=== PATIENT | male | born 1950 | race Caucasian/White ===

== ENCOUNTER 2025-02-19 08:12 | Emergency (ER) | payer MEDICARE, SELFPAY ==
[2025-02-19 08:17] VITALS: BP 165/88; PULSE 71; RESP 16; TEMP 36.7; O2SAT 96
--- OUTSIDE RECORDS SUMMARY | 2025-02-19 10:31 | XMS_ITS | Clinical Summary ---
Author Organization [facility] Address [address] [place] [address] Care Team Providers Care Library Associate Name Role Phone Boby Rand DO Primary Care Provider + Allergies Active Allergy Reactions Criticality Noted Date Comments Codeine Nausea And Vomiting 01/15/2022 Latex Hives 01/15/2022 Penicillins Rash Low 01/15/2022 Medications atorvaSTATin (LIPITOR) 40 mg tablet Take 40 mg by mouth every 2 (two) days Active atorvaSTATin (LIPITOR) 80 MG tablet Take 80 mg by mouth every 2 (two) days Active valsartan (DIOVAN) 80 mg tablet Take 80 mg by mouth nightly Active docusate sodium (COLACE) 100 mg capsule Take 100 mg by mouth 2 (two) times a day Active pantoprazole (PROTONIX) 40 mg tablet Take 40 mg by mouth as needed Active metoclopramide (REGLAN) 5 mg tabletIndicatio ns:Gastroesopha geal Reflux Disease Take 5 mg by mouth 4 (four) times a day PRN before or after meals Active guaiFENesin (MUCINEX) 600 MG 12 hr tablet Take 1,200 mg by mouth every 1 (one) day as needed Active albuterol HFA (PROAIR,PROVENT IL,VENTOLIN) 108 (90 Base) MCG/ACT inhaler Inhale 2 puffs every 6 (six) hours as needed for shortness of breath or wheezing 8.5 g Active HYDROcodone-wily taminophen (NORCO 5-325) 5-325 MG per tablet Take 1 tablet by mouth every 4 (four) hours as needed for up to 10 doses 10 tablet 2 Active Fluticasone-Ume clidin-Vilant (TRELEGY ELLIPTA INH) Inhale 1 puff Once a day Active aspirin 81 mg EC tablet Take 81 mg by mouth every 1 (one) day Active DUPIXENT Solution Prefilled Syringe injection Inject 2 mL under the skin every 14 (fourteen) days Active Miscellaneous Medication Inject under the skin every 4 (four) weeks Allergy injection monthly Active Active Problems Problem Noted Date Diagnosed Date S/P coronary artery stent placement 08/09/2022 Assessment & Plan (01/24/2025 1:29 PM CDT): Total of 4 coronary stents involving circumflex, LAD, ramus artery, distal right. Stress test 02/28/2024 showed no ischemia. Ejection fraction 60 to 65% Assessment & Plan (06/14/2024 10:12 PM CDT): Total of 4 coronary stents involving circumflex, LAD, ramus artery, distal right. Stress test 02/28/2024 showed no ischemia. Ejection fraction 60 to 65% Assessment & Plan (04/22/2023 5:08 PM SUPPORT SPECIALIST): Total of 4 coronary stents involving circumflex, LAD, ramus artery, distal right. Assessment & Plan (08/09/2022 12:03 PM CDT): Total of 4 coronary stents, recent stress tests equivocal for possible ischemia. Eczema 08/09/2022 Assessment & Plan (01/24/2025 1:27 PM CDT): Improved with Dupixent, also benefit for his asthma. Assessment & Plan (06/14/2024 10:13 PM CDT): Improved with Dupixent, also benefit for his asthma. Assessment & Plan (08/09/2022 12:04 PM CDT): Controlled with Dupixent Hiatal hernia with gastroesophageal reflux 08/09 Assessment & Plan (06/14/2024 10:11 PM CDT): Large hiatal hernia, excellent dietary habits and control, on medications routinely. Assessment & Plan (11/11/2023 8:57 PM CDT): Reasonable control, hiatal hernia obviously still present. Assessment & Plan (04/22/2023 5:07 PM SUPPORT SPECIALIST): Large hiatal hernia, chronic reflux symptoms although reasonably controlled at this time. Assessment & Plan (08/09/2022 12:04 PM CDT): Large hiatal hernia, reflux symptoms reasonably well controlled Severe persistent asthma 08/09/2022 Assessment & Plan (01/24/2025 1:28 PM CDT): Generally has more difficulties fall and early winter months, thus far stable in 2024. Assessment & Plan (06/14/2024 10:12 PM CDT): Most recent exacerbation was from January 22, 2024, lasting until [place]. He finally took steroids and azithromycin with improvement. He did not require hospitalization. Assessment & Plan (11/11/2023 8:58 PM CDT): Now on Dupixent to help control eczema, some benefit for asthma control as well Assessment & Plan (04/22/2023 5:07 PM SUPPORT SPECIALIST): Severe problems since childhood Assessment & Plan (08/09/2022 12:06 PM CDT): Asthma since childhood, multiple exacerbations over the years, currently reasonably well controlled with combination of Dupixent and Trelegy. Abnormal chest CT 08/09/2022 Assessment & Plan (06/14/2024 10:13 PM CDT): No new changes Assessment & Plan (04/22/2023 5:06 PM SUPPORT SPECIALIST): Waxing and waning infiltrates, currently no worse. Assessment & Plan (08/09/2022 12:08 PM CDT): Waxing and waning infiltrates, COVID-19, MRSA cultured from sputum, Aspergillus cultured from sputum. Questions remain about chronicity, and diagnosis of bronchiectasis has previously been question, but obviously cannot be determined in the face of an acute ongoing infection. MRSA (methicillin resistant staphylococcus aureus) pneumonia 01/20/2022 Severe sepsis 01/17/2022 Steroid-induced hyperglycemia 01/17/2022 Hyperlipidemia 01/17/2022 Essential hypertension 01/17/2022 Transaminitis 01/17/2022 Hyponatremia 01/17/2022 Metabolic acidosis 01/17/2022 Overweight with body mass in dex (BMI) of 27 to 27.9 in adult 01/17/2022 Secondary hypercoagulable state 01/17/2022 Pneumonia due to COVID-19 virus 01/15/2022 Resolved Problems Problem Noted Date Diagnosed Date Resolved Date Gram-negative pneumonia 01/17/202212/26 COPD exacerbation 01/17/2022 08/09/2022 Encounters Date Type Department Care Team Description 02/05/2025 2:30 PM SUPPORT SPECIALIST Immunization [facility] [address] [place] [address] Need for influenza vaccination (Primary Dx) 01/23/2025 2:00 PM CDT Office Visit [facility] [id number] [address] [facility], [facility] [address] [place] [address] Lilliana Lainez MD Schelbar, Emil Joe, MD Eczema, unspecified type (Primary Dx); Severe persistent asthma, unspecified whether complicated ([facility], [facility]); S/P coronary artery stent placement from Last 3 Months Immunizations Immunization Administration Dates Next Due Influenza, Adjuvanted, Trivalent, Preservative F ree 02/05/2025 Family History Medical History Relation Comments Hypertension Mother Relation Status Comments Mother Social History Tobacco Use Types Packs/Day Years Used Date Smoking Tobacco: Never Smokeless Tobacco: Never Alcohol Use Standard Drinks/Week Comments Not Currently 0 (1 standard drink = 0.6 oz pur e alcohol) Sex and Gender Information Value Date Recorded Sex Assigned at Not on file Legal Sex Male 4:17 AM CDT Gender Identity Not on file Sexual Orientation Not on file Last Filed Vital Signs Vital Sign Reading Time Taken Comments Blood Pressure 170/74 01/23/2025 2:45 PM CDT Pulse 58 01/23/2025 2:02 PM CDT Temperature 36.4 C (97.5 F) 01/23/2025 2:02 PM CDT Respiratory Rate 18 01/23/2025 2:02 PM CDT Oxygen Saturation 98% 01/23/2025 2:02 PM CDT RA@REST Inhaled Oxygen Concentration - - Weight 73.7 kg (162 lb 6.4 oz) 01/23/2025 2:02 P M CDT Height 165.1 cm (5' 5) 01/23/2025 2:02 PM CDT Body Mass Index 27.02 01/23/2025 2:02 PM CDT Plan of Treatment Upcoming Encounters Date Type Department Care Team (Late st Contact Info) Description 08/05/2025 1:20 PM CDT Office Visit [facility] [id number] [address], [facility] [address] [place] [address] [place] [address] [place] [address] Kahlil Haley MD [address] [facility] [address] [place] [address] Health Maintenance Due Date Last Done Comments Lipid Panel 1950 Medicare Annual Wellness (AWV) 1950 Adult Depression Screening 1970 Hepatitis C Screening 1970 DTaP/Tdap/Td Vaccines (1 - Tdap) 10/11/1971 Pneumococcal Vaccine: 50+ Years (1 of 2 - PCV) 10/11/1971 Zoster Vaccine (1 of 2) 10/11/1971 CT Colonography 1997 Colonoscopy 1997 FIT 1997 FOBT 1997 Sigmoidoscopy 1997 Prostate Cancer Screening 2002 Respiratory Syncytial Virus (RSV) or 50+ Years (1 - Risk 50-74 years 1-dose series) 2002 Fall Screening 2016 Advance Care Planning 2017 Creatinine Level 08/09/2023 08/08/2022, , 01/22/2022, Additional history exists Potassium Level 08/09/2023 08/08/2022, 12/27, 01/22/2022, Additional history exists COVID-19 Vaccine ( season) 2024 02/10/2021, 04/20/2020, 03/23/2020 Cologuard (FIT-DNA) 01/18/2026 01/18/2023 Colorectal Cancer Screening 01/18/2026 Influenza Vaccine Completed 02/05/2025, , 01/09/2023, Additional history exists HIB Vaccines Aged Out No longer eligi ble based on patient's age to complete this topic HPV Vaccines (No Doses Required) Completed Hepatitis A Vaccines Aged Out No long er eligible based on patient's age to complete this topic Hepatitis B Vaccines Aged Out No long er eligible based on patient's age to complete this topic IPV Vaccines Aged Out No longer eligi ble based on patient's age to complete this topic Meningococcal B Vaccine Aged Out No l onger eligible based on patient's age to complete this topic Meningococcal Vaccine Aged Out No [place] eligible based on patient's age to complete this topic Rotavirus Vaccines Aged Out No longer eligible based on patient's age to complete this topic Procedures Procedure Name Priority Date/Time Associated Diagnosis Comments CMP STAT 08/08/2022 12:44 AM CDT from Last 3 Months or Most Recently Relevant to Health Maintenance Results * (ABNORMAL) CMP (08/08/2022 12:44 AM CDT) Gluc 156(H) 70 - 110 mg/dL 08/08/2022 1:07 AM CDT [facility] BUN 17 5 - 25 mg/dL 08/08/2022 1:07 AM CDT [facility] Creat 1.00 0.72 - 1.25 mg/dL 08/08/2022 1:07 AM CDT [facility] CO2 19(L) 21 - 32 mmol/L 08/08/2022 1:07 AM CDT [facility] Cl 104 96 - 112 mmol/L 08/08/2022 1:07 AM T [facility] Na 136 135 - 146 mmol/L 08/08/2022 1:07 AM T [facility] K 4.1 3.5 - 5.0 mmol/L 08/08/2022 1:07 AM T [facility] Ca 9.6 8.5 - 10.7 mg/dL 08/08/2022 1:07 AM T [facility] TP 6.9 6.2 - 8.2 g/dL 08/08/2022 1:07 AM T [facility] Alb 3.9 3.4 - 4.7 g/dL 08/08/2022 1:07 AM [facility] T Bili 0.6 0.1 - 1.2 mg/dL 08/08/2022 1:07 AM [facility] Alk Phos 94 39 - 139 U/L 08/08/2022 1:07 AM [facility] AST (SGOT) 18 8 - 42 U/L 08/08/2022 1:07 AM [facility] ALT (SGPT) 16 7 - 40 U/L 08/08/2022 1:07 AM [facility] Anion Gap 13 5-17 mmol/L mmol/L 08/08/2022 1:07 AM [facility] eGFRcr 81 >=60 08/08/2022 1:07 AM [facility] Blood Venipuncture / Unknown 08/08/2022 12:44 AM CDT 08/08/2022 12:44 AM CDT Boby PLASCENCIA [facility] BLOOD ORDERABLES Final Result [facility] [address] [facility] 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
--- OUTSIDE RECORDS SUMMARY | 2025-02-19 10:31 | XMS_ITS | Clinical Summary ---
Author Organization [facility] Address [address] [place] [address] Phone Care Team Providers Care Director Of Coding Name Role Phone Boby Rand DO Primary Care Provider [phone] Allergies Active Allergy Reactions Criticality Noted Date Comments Amoxicillin-Pot Clavulanate Nausea And Vomiting High 07/06/2017 Latex Swelling,Rash High 07/06/2017 Penicillins Unknown 07/06/2017 Ticagrelor Shortness of breath High 01/28/2019 Medications aspirin 81 mg tablet, delayed release Take 1 tablet (81 mg total) by mouth 1 (one) time each day. Active nitroglycerin (NITROSTAT) 0.[address] 1 tablet (0.4 mg total) under the tongue every 5 (five) minutes if needed for chest pain. Active levalbuterol (XOPENEX HFA) 45 mcg/actuation inhaler Inhale 1-2 puffs if needed for wheezing. Active azelastine 205.5 mcg (0.15 %) spray,non-aeros ol Administer 205.5 mcg into affected nostril(s) if needed. Active fluticasone (FLONASE) 50 mcg/actuation nasal spray Administer 1 spray into each nostril if needed for rhinitis. Active pantoprazole (PROTONIX) 40 mg EC tablet Take 1 tablet (40 mg total) by mouth 1 (one) time each day. Active metoclopramide (REGLAN) 5 mg tablet Take 1 tablet (5 mg total) by mouth if needed. Active fluticasone-hermilo meterol (ADVAIR HFA) 45-21 mcg/actuation inhaler Inhale 2 puffs 2 (two) times per day. Rinse mouth with water after use . Do not swallow. 12 g 8 Active dupilumab (DUPIXENT) 300 mg/2 mL syringe Dupixent 300 mg/2 mL subcutaneous syringe Active albuterol HFA (Ventolin HFA) 90 mcg/actuation inhaler ProAir HFA 90 mcg/actuation aerosol inhaler Active atorvastatin (LIPITOR) 80 mg tablet Take 1 tablet (80 mg total) by mouth every other day. TAKE 1 TABLET EVERY OTHER DAY ALTERNATING WITH 40 MG TABLET Strength: 80 mg 45 tablet 3 5 Active atorvastatin (LIPITOR) 40 mg tablet Take 1 tablet (40 mg total) by mouth every other day. TAKE 1 TABLET EVERY OTHER DAY ALTERNATING WITH 80 MG TABLET Strength: 40 mg 45 tablet 3 5 Active valsartan (DIOVAN) 80 mg tablet Take 1 tablet (80 mg total) by mouth 1 (one) time each day. 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 BMI 27.0-27.9,adult 07/06/2017 Mixed hyperlipidemia 07/06/2017 Hypertensive heart disease without heart failure 07/06/2017 Palpitations 07/06/2017 Dizziness and giddiness 07/06/2017 Shortness of breath 07/06/2017 Atherosclerosis of coronary artery of [place] heart without angina pectoris 02/24/2015 Chest pain 12/25/2014 Immunizations Immunization Administration Dates Next Due Influenza, Unspecified 12/25/2017,01/09/2016 Pneumococcal Conjugate 13-Valent 03/28/2017 Pneumococcal Polysaccharide 10/26/2015 Family History Medical History Relation Comments Heart disease Mother Relation Status Comments Mother Social History Tobacco Use Types Packs/Day Years Used Date Smoking Tobacco: Never Passive Smoke Exposure: Yes Smokeless Tobacco: Never Tobacco Cessation:Counseling Given: No Alcohol Use Standard Drinks/Week Comments Yes 0 (1 standard drink = 0.6 oz pur e alcohol) occassionally drinks red wine Sex and Gender Information Value Date Recorded Sex Assigned at Not on file Legal Sex Male 1:30 PM CDT Gender Identity Male 09/15/2020 1:55 PM CDT Sexual Orientation Not on file Last Filed Vital Signs Vital Sign Reading Time Taken Comments Blood Pressure 124/66 03/06/2024 8:52 AM 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 Pulse 75 03/06/2024 8:52 AM 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 Temperature - - Respiratory Rate 16 03/06/2024 8:52 AM 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 Oxygen Saturation - - Inhaled Oxygen Concentration - - Weight 71.4 kg (157 lb 6.4 oz) 03/06/2024 8:52 A M 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 Height 165.1 cm (5' 5) 03/06/2024 8:52 AM 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 Body Mass Index 26.19 03/06/2024 8:52 AM 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 Plan of Treatment Upcoming Encounters Date Type Department Care Team (Late st Contact Info) Description 01/14/2026 1:00 PM CDT Office Visit [facility] [address] [place] [address] Laureano Newberry MD [address] [place] [address] Health Maintenance Due Date Last Done Comments CT Colonography 1950 Colonoscopy 1950 Medicare Wellness 1950 MMR Vaccines (1 of 1 - Standard series) 1953 Varicella Vaccines (1 of 2 - 13+ 2-dose series) 1965 Hepatitis C Screening 1970 DTaP,Tdap,and Td Vaccines (1 - Tdap) 10/11/1971 FOBT/FIT 1997 Sigmoidoscopy 1997 RSV Vaccine (1 - Risk 50-74 years 1-dose series) 2002 Zoster Vaccines (1 of 2) 2002 Depression Screening 03/27/2024 Fall Risk Screening 03/27/2024 Influenza Vaccine (#1) 2024 3, 01/08/2022, 01/02/2020, Additional history exists COVID-19 Vaccine ( season) 2024 02/10/2021, 04/20/2020, 03/23/2020 Cologuard 01/18/2026 01/18/2023 Colorectal Cancer Screening 01/18/2026 Pneumococcal 50+ Yr Completed 12/12/2018, 03/28/2017, 02/24/2016, Additional history exists Pneumococcal Discontinued 12/12/2018, 04/2017, 02/24/2016, Additional history exists HIB Vaccines Aged Out No longer eligi ble based on patient's age to complete this topic HPV Vaccines Aged Out No longer eligi ble based on patient's age to complete this topic Hepatitis A Vaccines Aged Out No long [...] on patient's age to complete this topic RSV Antibodies Aged Out No longer kin gible based on patient's age to complete this topic Insurance MEDICARE PART A AND B [employer] Care Teams Director Of Coding Relationship Specialty Start Date End Date Boby Rand DO PCP - General Student 11/22/21
--- NOTE | 2025-02-19 11:26 | ED_ITS ---
HPI - General Adult General Chief complaint: Urogenital-Male Stated complaint: bleeding from scrotum Time Seen by Provider: 02/19/25 09:15 History of Present Illness HPI narrative: 34-year-old male presenting with concerns for bleeding from his scrotum. Patient reports he got out of the shower this morning and and had blood running down his leg. He EMS was called to his hotel and they gave him a gauze to put pressure. Denies urinary concerns, abdominal pain, fevers/chills, or concerns for STD. He does not take blood thinners. Related Data Allergies Allergy/AdvReac Type Severity Reaction Status Date / Time latex Allergy Intermediate Hives Verified 02/19/25 08:21 Penicillins Allergy Intermediate Rash Verified 02/19/25 08:21 Review of Systems Review of Systems: All systems reviewed & are unremarkable except as noted in HPI and below Exam Narrative: GENERAL: Well-appearing, well-nourished, and in no acute distress. HEAD: Normocephalic, atraumatic. EYES: PERRLA and EOMI. ENT: Nares clear, no rhinorrhea or epistaxis. Mucous membranes moist. Oropharynx without tonsillar hypertrophy exudate or other lesions. Bilateral TMs pearly dasilva non-bulging NECK: Supple. No adenopathy or masses. No carotid bruits or JVD CHEST: Clear to auscultation. No respiratory distress. No wheezes rales or rhonchi HEART: Regular rate and rhythm. No murmur heard. Normal peripheral pulses. ABDOMEN: Soft, nontender, nondistended, normal active bowel sounds. EXTREMITIES: Normal range of motion. No edema. SCROTUM: Small pinpoint lesion, no erythema, swelling, warmth, induration, fluctuance, or lymphadenopathy SKIN: Warm, dry, no rash. NEURO: No focal deficits. Alert and oriented x3. PSYCH: Normal mood and affect Course Vital Signs Vital signs: Vital Signs Temperature 98.1 F 02/19/25 08:17 Pulse Rate 71 02/19/25 08:17 Respiratory Rate 16 02/19/25 08:17 Blood Pressure 165/88 H 02/19/25 08:17 Pulse Oximetry 96 02/19/25 08:17 Oxygen Delivery Room Air 02/19/25 08:17 Temperature 98.1 F 02/19/25 08:17 Pulse Rate 71 02/19/25 08:17 Respiratory Rate 16 02/19/25 08:17 Blood Pressure 165/88 H 02/19/25 08:17 Pulse Oximetry 96 02/19/25 08:17 Oxygen Delivery Room Air 02/19/25 08:17 Medical Decision Making MDM Narrative Medical decision making narrative: 34-year-old male presenting with concerns for bleeding from his scrotum. Patient reports he got out of the shower this morning and and had blood running down his leg. He EMS was called to his hotel and they gave him a gauze to put pressure. Denies urinary concerns, abdominal pain, fevers/chills, or concerns for STD. He does not take blood thinners. Physical exam demonstrated a small pinpoint lesion on the left scrotum with evidence of recent bleeding. Bleeding was controlled. No surrounding erythema, swelling, warmth, induration, fluctuance, or lymphadenopathy. No systemic signs of infection or acute illness. Advised the lesion may bleed with minor trauma, usually benign and to avoid shaving or trauma to area. Patient reports he is currently visiting family and that he forgot his blood pressure medication. Will send with short-term prescription. All questions were answered to the patient's satisfaction. The patient is appropriate for outpatient treatment and follow- up. Vital Signs Vital Signs: Vital Signs Temperature 98.1 F 02/19/25 08:17 Pulse Rate 71 02/19/25 08:17 Respiratory Rate 16 02/19/25 08:17 Blood Pressure 165/88 H 02/19/25 08:17 Pulse Oximetry 96 02/19/25 08:17 Oxygen Delivery Room Air 02/19/25 08:17 Temperature 98.1 F 02/19/25 08:17 Pulse Rate 71 02/19/25 08:17 Respiratory Rate 16 02/19/25 08:17 Blood Pressure 165/88 H 02/19/25 08:17 Pulse Oximetry 96 02/19/25 08:17 Oxygen Delivery Room Air 02/19/25 08:17 Discharge Plan Discharge Clinical Impression: Skin lesion of scrotum Patient Disposition: Home Condition: Stable Instructions: Laceration (ED) Additional Instructions: Return if symptoms worsen or concerns: any increase in redness, swelling, pain or fever over 101. Other concerns include chest pain, shortness of breath, abdominal pain with nausea and vomiting, weakness, numbness/tingling, or any other symptoms that are concerning to you. Follow-up with primary care provider. Patient Language: [place] Prescriptions: New valsartan 80 mg tablet 80 mg PO DAILY Qty: 3 0RF Follow-up/Referrals: PHYSICIAN NOT ON STAFF,NONSTAFF [Primary Care Provider]
== END 2025-02-19 10:05 | disposition home or self-care (01) ==
LOC: ANHED 09:52
DX: L98.9 Disorder of the skin and subcutaneous tissue, unspecified (principal); I10 Essential (primary) hypertension
CPT/HCPCS: 99283